=== PATIENT | male | born 1980 | race Caucasian/White ===

== ENCOUNTER 2022-02-05 17:12 | Emergency (ER) | payer OTHER ==
[2022-02-05 17:26] VITALS: BP 130/88; PULSE 84; TEMP 98.2; BMI 29.4
== END 2022-02-05 18:35 | disposition home or self-care (01) ==
LOC: FER 17:12
DX: M25.571 Pain in right ankle and joints of right foot (principal)
CPT/HCPCS: 73610-TC-RT-FY; 99283-25